=== PATIENT | male | born 1970 | race Caucasian/White ===

== ENCOUNTER 2022-09-16 13:45 | Outpatient (RCR) | payer OTHER, SELFPAY ==
--- NOTE | 2022-09-16 15:41 | PTOPEVAL1 ---
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 He reports new onset of baljinder middle back pain 4-5 months ago without a THEE. 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 Reported Pain Level Pain Score 5: Self Report Assessment PT Clinical Summary Ilya presents to therapy today for therapy with a diagnosis of chest pain. Today he reports low back pain starting about 4 months ago. Today he demonstrates active spinal mobility that is mostly WNL. He has tenderness to palpation throughout her thoracic paraspinals. He has atypical movement patterns d/t congenital abnormalities. Skilled therapy services are indicated to improve core strength, posture awareness, body mechanics, and to return to PLOF. Plan of Care Interventions Electrical Stimulation,Gait Training,Hot Pack/Cold Pack,Manual Therapy,Neuro Re-education,Patient/ Caregiver Educati,Therapeutic Activities, Therapeutic Exercise PT Services Indicated Yes Treatment Frequency and 1x/wk for 4 wks Duration These treatments will address the objective and functional deficits as defined above. The patient will be advanced safely and appropriately in order for the patient to progress towards his/her prior level of function. Additional exercises will be introduced and as well as a comprehensive home exercise program upon discharge, if needed, ?to ensure carryover of functional gains achieved in the clinic. This treatment plan has been reviewed and agreement upon by the patient.
--- NOTE | 2022-09-16 15:41 | OPREHPOC ---
Outpatient Therapy Plan of Care This is a Multidisciplinary Plan of Care that may contain components documented by all disciplines (PT, OT, and ST.) PT Problem 1 PT Problem #1 Knowledge Deficit PT Goal 1 Goal Pt to be IND with issued HEP Target Visit 4 PT Problem 2 PT Problem #2 Pain PT Goal 1 Goal Pt to report low back pain no greater than 3/10 in the last week Target Visit 4 PT Goal 2 Goal Pt to report 75% improvement in overall symptoms Target Visit 4 PT Problem 3 PT Problem #3 Impaired Range of Motion PT Goal 1 Goal Pt to demonstrate spinal mobility that is WNL. Target Visit 4 PT Goal 2 Goal Pt to improve his hamstring length to -20 deg Target Visit 4
--- NOTE | 2022-09-24 14:10 | PCPTNOTE ---
Patient was called to see if he could move up on the schedule however once on the phone stated he would need to cancel appointment this date.
--- NOTE | 2022-09-30 16:09 | PCPTNOTE ---
Pt no showed for visit today and called to remind him of his next appt his message stated he does not have his voicemail box set up yet.
--- NOTE | 2022-10-07 16:11 | PCPTNOTE ---
Pt NS appt again today and stated he forgot due to work. He was reminded of day and time on his next appt, his re-eval.
--- NOTE | 2022-10-16 15:49 | PCPTNOTE ---
Patient did not show up for scheduled appointment this date.
--- NOTE | 2022-10-16 15:52 | PTOPDC ---
Assessment and note entered by Heidy Marie, PT, DPT Evaluation Information Assessment Status Discharge - Pt Not Present Diagnosis back and chest pain Onset 4-5 months Subjective Information Pt did not show for scheduled appointment today. Tried to call pt but call did not go through and could not leave voicemail. Assessment PT Clinical Summary Ilya was evaluated on 09/16/22 and has completed no follow up appointments since then. He called and cancelled one visit and did not show up to the following 3. He will be discharged at this time per the attendance policy.
== END 2022-10-17 08:43 | disposition home or self-care (01) ==
LOC: ANHGOSHPT 13:45
PROVIDERS: PCP Family Medicine; Visit Provider Family Medicine
DX: R07.89 Other chest pain (principal)
CPT/HCPCS: 97110; 97161; 99199

== ENCOUNTER 2023-02-13 16:17 | Outpatient (CLI) | payer OTHER, SELFPAY ==
--- NOTE | ~2023-02-13 | CT_ITS ---
EXAMINATION:CT lung screening DATE: 02/13/2023 16:41 INDICATION: Nicotine dependence, cigarettes, uncomplicated. Current smoker with 30 pack year history. TECHNIQUE: Computed tomography (CT) of the chest was performed without intravenous contrast. Automate d exposure control and iterative reconstruction technique were employed. The dose-length product (DLP ) was 92.06 mGy-cm. COMPARISON: None. FINDINGS: There is mild scarring at the lung apices. There is mild emphysema. There is a 3 mm nodule in right middle lobe. There is mild atelectasis bilaterally. No pleural effusion. The heart size is n ormal. No pericardial effusion. 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 T here is mild thoracic spondylosis. IMPRESSION: 1. Lung-RADS category 2: Benign appearance or behavior. Continue annual screening with noncontrast lo w-dose chest CT in 12 months. Reviewed, dictated and finalized at [facility] IMPRESSION: 1. Lung-RADS category 2: Benign appearance or behavior. Continue annual screeni ng with noncontrast low-dose chest CT in 12 months.
== END 2023-02-13 16:18 | disposition home or self-care (01) ==
PROVIDERS: PCP Family Medicine; Visit Provider Nurse Practitioner
DX: F17.210 Nicotine dependence, cigarettes, uncomplicated (principal)
CPT/HCPCS: 71271